=== PATIENT | female | born 1990 | race African-American/Black ===

== ENCOUNTER 2019-04-05 17:18 | Emergency (ER) | payer MEDICAID ==
[~2019-04-05] VITALS: Ht 157.5 cm; Wt 81.6 kg
[2019-04-05] MEDS ORDERED: ACETAMINOPHEN 325 MG TAB PO ONE (21:15)
[2019-04-05] MEDS ORDERED: cefTRIAXone SOD 1,000 MG VL IM ONE (23:00)
[2019-04-05 23:06] VITALS: BP 109/64
== END 2019-04-05 23:22 | disposition home or self-care (01) ==
LOC: ER 17:23 → EDBD 17:23 → ER 23:22
DX: O99.511 Diseases of the respiratory system complicating pregnancy, first trimester (principal); J02.9 Acute pharyngitis, unspecified; R51 Headache; Z3A.10 10 weeks gestation of pregnancy
CPT/HCPCS: 36415; 86308; 87070; 87880; 96372; 99283; J0696